=== PATIENT | male | born 1945 | race Caucasian/White ===

== ENCOUNTER 2019-12-04 12:07 | Observation (INO) ==
[2019-12-04] MEDS ORDERED: 0.9 % Sodium Chloride 1,000 ML IVC ONE (12:35)
[2019-12-04] MEDS ORDERED: Furosemide 40 MG/4 ML VIAL IVP ONE (12:35)
[2019-12-04] MEDS ORDERED: predniSONE 20 MG TABLET PO ONE (12:35)
[2019-12-04] MEDS ORDERED: Isovue-370 500 ML BOTTLE IVP ONE (12:38)
[2019-12-04] MEDS ORDERED: *HR* FentaNYL (PF) 100 MCG/2 ML VIAL IVP ONE (12:48)
[2019-12-04] MEDS ORDERED: Ondansetron 4 MG/2 ML VIAL IVP ONE (12:48)
[2019-12-04] MEDS ORDERED: Azithromycin 500 MG in 0.9 % Sodium Chloride 250 ML IVPB ONE (12:49)
[2019-12-04 12:57] LABS: Basophils # 0.1 K/mcL (0.0-0.2); Basophils % 0.6 %; Eosinophils # 0.1 K/mcL (0.0-0.6); Eosinophils % 0.7 %; Hematocrit 41.5 % (37.5-50.1); Hemoglobin 12.8 g/dL (12.9-16.9); Immature Granulocytes % 0.4 % (0-4); Lymphocytes # 0.8 K/mcL (0.6-4.6); Lymphocytes % 8.7 %; Mean Corpuscular HGB Conc 30.8 g/dL (31.6-35.5); Mean Corpuscular Hemoglobin 29.4 pg (28.0-33.3); Mean Corpuscular Volume 95.4 fL (83.0-100.0); Mean Platelet Volume 10.9 fL (9.4-12.4); Monocytes # 0.4 K/mcL (0.0-1.3); Monocytes % 4.7 %; Neutrophils # 7.6 K/mcL (1.6-8.9); Platelet Count 229 K/mcL (140-400); Red Blood Count 4.35 M/mcL (4.19-5.50); Red Cell Distribution Width 14.2 % (11.5-14.5); Segmented Neutrophils % 84.9 %
[2019-12-04 13:00] LABS: INR 1.3; Prothrombin Time 14.7 Seconds (9.4-12.1)
[2019-12-04 13:03] LABS: Activated Partial Thrombo Time 37.3 Seconds (26.0-36.0)
[2019-12-04 13:14] LABS: Bilirubin,Urine Negative (Negative); Blood,Urine Negative (Negative); Clarity,Urine Clear (Clear); Color,Urine Light-Yellow (Yellow); Glucose,Urine (UA) Normal (Normal); Ketones,Urine Negative (Negative); Leukocyte Esterase,Urine Negative (Negative); Nitrite,Urine Negative (Negative); PH,Urine 6.5 pH Units (5.0-8.0); Protein,Urine Trace mg/dL (Neg-Trace); Specific Gravity,Urine 1.022 (1.010-1.025); Urobilinogen,Urine Normal (Normal)
[2019-12-04 13:24] LABS: Alanine Aminotransferase 32 Units/L (7-52); Albumin 4.2 g/dL (3.5-5.7); Albumin/Globulin Ratio 1.8 (1.1-2.2); Alkaline Phosphatase 95 Units/L (34-104); Aspartate Amino Transferase 25 Units/L (13-39); BUN/Creatinine Ratio 22 (6-26); Bilirubin,Direct 0.2 mg/dL (0.0-0.2); Bilirubin,Indirect 0.5 mg/dL (0.0-1.0); Bilirubin,Total 0.7 mg/dL (0.3-1.0); Blood Urea Nitrogen 31 mg/dL (8-23); Calcium 9.4 mg/dL (8.6-10.3); Carbon Dioxide 32 mEq/L (23-29); Chloride 101 mEq/L (98-107); Globulin 2.3 g/dL (2.4-3.5); Glucose 116 mg/dL (70-105); Lipase 40 Units/L (11-82); Osmolality,Calculated 296 (280-300); Potassium 4.3 mEq/L (3.5-5.1); Sodium 139 mEq/L (136-145); Total Protein 6.5 g/dL (6.4-8.9); Troponin I 0.04 ng/mL (< 0.04); eGFR For African Americans > 60 (> 60); eGFR For Non-African Americans 50 (> 60)
[2019-12-04] MEDS ORDERED: Aspirin 81 MG TAB.CHEW PO ONE (13:24)
[2019-12-04 14:08] LABS: Adenovirus Not Detected (Not Detect); Bordetella Pertussis Not Detected (Not Detect); Chlamydophila pneumoniae Not Detected (Not Detect); Coronavirus 229E Not Detected (Not Detect); Coronavirus HKU1 Not Detected (Not Detect); Coronavirus NL63 Not Detected (Not Detect); Coronavirus OC43 Not Detected (Not Detect); Human Metapneumovirus Not Detected (Not Detect); Human Rhinovirus/Enterovirus Not Detected (Not Detect); Influenza A Subtype 2009 H1 Not Detected (Not Detect); Influenza B Not Detected (Not Detect); Mycoplasma pneumoniae Not Detected (Not Detect); Parainfluenza Virus 1 Not Detected (Not Detect); Parainfluenza Virus 2 Not Detected (Not Detect); Parainfluenza Virus 3 Not Detected (Not Detect); Parainfluenza Virus 4 Not Detected (Not Detect); Respiratory Syncytial Virus Not Detected (Not Detect)
[2019-12-04] MEDS ORDERED: Naloxone 0.4 MG/ML INJ IVP PRN (15:45)
[2019-12-04] MEDS ORDERED: Ondansetron 4 MG/2 ML VIAL IVP PRN (15:45)
[2019-12-04] MEDS ORDERED: Ipratropium/Albuterol Neb 3 ML IH PRN (15:47)
[2019-12-04] MEDS ORDERED: Perflutren Lipid Microsphere 1.3 ML in 0.9 % Sodium Chloride 8.7 ML IVP PRN (15:48)
[2019-12-04] MEDS: Ipratropium/Albuterol Neb 3 ML IH SCH ×2 (16:18→21:48)
[2019-12-04] MEDS ORDERED: *HR* Metoprolol 5 MG/5 ML VIAL IVP ONE (16:26)
[2019-12-04] MEDS ORDERED: *HR* Metoprolol 5 MG/5 ML VIAL IVP STA (16:51)
[2019-12-04] MEDS: Nicotine 21 MG PATCH.TD24 TD SCH (17:15)
[2019-12-04] MEDS: Apixaban 5 MG TABLET PO SCH (20:49)
[2019-12-05] MEDS: Melatonin 3 MG TABLET PO PRN (00:09)
[2019-12-05 02:37] LABS: Basophils % 0.1 %; Hematocrit 36.7 % (37.5-50.1); Hemoglobin 11.4 g/dL (12.9-16.9); Immature Granulocytes % 0.5 % (0-4); Lymphocytes # 0.5 K/mcL (0.6-4.6); Lymphocytes % 6.4 %; Mean Corpuscular HGB Conc 31.1 g/dL (31.6-35.5); Mean Corpuscular Hemoglobin 29.4 pg (28.0-33.3); Mean Corpuscular Volume 94.6 fL (83.0-100.0); Mean Platelet Volume 10.9 fL (9.4-12.4); Monocytes # 0.4 K/mcL (0.0-1.3); Monocytes % 5.2 %; Neutrophils # 6.7 K/mcL (1.6-8.9); Platelet Count 211 K/mcL (140-400); Red Blood Count 3.88 M/mcL (4.19-5.50); Red Cell Distribution Width 14.1 % (11.5-14.5); Segmented Neutrophils % 87.8 %; White Blood Count 7.7 K/mcL (4.3-11.1)
[2019-12-05 03:00] LABS: Calcium 8.5 mg/dL (8.6-10.3); Magnesium 2.1 mg/dL (1.6-2.6); Phosphorous 4.3 mg/dL (2.7-4.5); Potassium 4.6 mEq/L (3.5-5.1)
[2019-12-05] MEDS: Ipratropium/Albuterol Neb 3 ML IH SCH ×4 (03:14→21:42)
[2019-12-05] MEDS: Nicotine 21 MG PATCH.TD24 TD SCH (08:33)
[2019-12-05] MEDS: lisinopriL 10 MG TABLET PO SCH (08:34)
[2019-12-05] MEDS: Apixaban 5 MG TABLET PO SCH (08:34)
[2019-12-05] MEDS ORDERED: Azithromycin 500 MG in 0.9 % Sodium Chloride 250 ML IVPB SCH (09:00)
[2019-12-05] MEDS ORDERED: Furosemide 20 MG/2 ML VIAL IVP SCH (09:00)
[2019-12-05] MEDS ORDERED: predniSONE 20 MG TABLET PO SCH (09:00)
[2019-12-05] MEDS ORDERED: *HR* Heparin 5,000 UNIT/ML VIAL IVP ONE (14:25)
[2019-12-05 15:04] LABS: Hematocrit 37.5 % (37.5-50.1); Hemoglobin 11.6 g/dL (12.9-16.9); Mean Corpuscular HGB Conc 30.9 g/dL (31.6-35.5); Mean Corpuscular Hemoglobin 29.4 pg (28.0-33.3); Mean Corpuscular Volume 94.9 fL (83.0-100.0); Mean Platelet Volume 10.6 fL (9.4-12.4); Platelet Count 215 K/mcL (140-400); Red Blood Count 3.95 M/mcL (4.19-5.50); Red Cell Distribution Width 14.4 % (11.5-14.5)
[2019-12-05 15:13] LABS: INR 1.3; Prothrombin Time 14.9 Seconds (9.4-12.1)
[2019-12-05 15:16] LABS: White Blood Count 14.3 K/mcL (4.3-11.1)
[2019-12-05] MEDS: *HR* LORazepam 0.5 MG TABLET PO PRN ×2 (15:25→20:19)
[2019-12-05] MEDS: Aspirin Enteric Coated 81 MG Tablet PO SCH (15:25)
[2019-12-05 15:34] LABS: Heparin anti-factor XA UFH 1.87 IU/mL (0.30-0.70)
[2019-12-05] MEDS ORDERED: *HR* Heparin 5,000 UNIT/ML VIAL IVP PRN ×2 (18:00)
[2019-12-05] MEDS ORDERED: Heparin 25,000UNIT/250ML 1/2NS 25,000 UNIT/250 ML IV.SOLN IVC SCH (18:00)
[2019-12-05 18:10] LABS: Heparin anti-factor XA UFH 1.83 IU/mL (0.30-0.70)
[2019-12-05 18:36] LABS: Activated Partial Thrombo Time 35.1 Seconds (26.0-36.0)
[2019-12-05] MEDS: *HR* Metoprolol 5 MG/5 ML VIAL IVP PRN (23:44)
[2019-12-06] MEDS ORDERED: *HR* LORazepam 2 MG/ML VIAL IVP ONE (00:18)
[2019-12-06 02:50] LABS: Basophils % 0.1 %; Eosinophils % 0.1 %; Hematocrit 36.2 % (37.5-50.1); Hemoglobin 11.3 g/dL (12.9-16.9); Immature Granulocytes % 0.3 % (0-4); Lymphocytes % 7.1 %; Mean Corpuscular HGB Conc 31.2 g/dL (31.6-35.5); Mean Corpuscular Hemoglobin 29.3 pg (28.0-33.3); Mean Corpuscular Volume 93.8 fL (83.0-100.0); Mean Platelet Volume 10.9 fL (9.4-12.4); Monocytes # 1.1 K/mcL (0.0-1.3); Monocytes % 7.8 %; Neutrophils # 12.2 K/mcL (1.6-8.9); Platelet Count 205 K/mcL (140-400); Red Blood Count 3.86 M/mcL (4.19-5.50); Red Cell Distribution Width 14.5 % (11.5-14.5); Segmented Neutrophils % 84.6 %; White Blood Count 14.5 K/mcL (4.3-11.1)
[2019-12-06 03:07] LABS: Calcium 8.7 mg/dL (8.6-10.3)
[2019-12-06] MEDS: Ipratropium/Albuterol Neb 3 ML IH SCH (03:26)
[2019-12-06] MEDS: *HR* Metoprolol 5 MG/5 ML VIAL IVP PRN (04:39)
[2019-12-06] MEDS ORDERED: Metoprolol XL (24 HR) Succ 50 MG TAB.ER.24H PO SCH (09:00)
[2019-12-06] MEDS: Aspirin Enteric Coated 81 MG Tablet PO SCH (09:46)
[2019-12-06] MEDS: lisinopriL 10 MG TABLET PO SCH (09:46)
[2019-12-06] MEDS ORDERED: *HR* Heparin 10,000 UNIT/10 ML VIAL ONE (11:38)
[2019-12-06] MEDS ORDERED: Heparin 1,000 UNITS/500 mL 500 ML ONE (11:38)
[2019-12-06] MEDS ORDERED: 0.9 % Sodium Chloride 2,000 ML ONE (11:38)
[2019-12-06] MEDS ORDERED: ISOVUE-370 200 ML INFUS..BTL ONE (11:38)
[2019-12-06] MEDS ORDERED: Nitroglycerin 1,000 MCG/10 ML VIAL IV ONE (11:39)
[2019-12-06] MEDS ORDERED: *HR* FentaNYL (PF) 100 MCG/2 ML VIAL ONE (12:15)
[2019-12-06] MEDS ORDERED: *HR* Midazolam HCl 2 MG/2 ML VIAL ONE (12:15)
[2019-12-06] MEDS: Furosemide 20 MG/2 ML VIAL IVP SCH ×2 (14:31→20:57)
[2019-12-06] MEDS: Nicotine 21 MG PATCH.TD24 TD SCH (14:35)
[2019-12-06] MEDS: Apixaban 5 MG TABLET PO SCH (20:53)
[2019-12-06] MEDS: Metoprolol XL (24 HR) Succ 50 MG TAB.ER.24H PO SCH (20:57)
[2019-12-06] MEDS: Melatonin 3 MG TABLET PO PRN (21:06)
[2019-12-07 05:28] LABS: Basophils % 0.2 %; Eosinophils # 0.2 K/mcL (0.0-0.6); Eosinophils % 1.5 %; Hemoglobin 11.7 g/dL (12.9-16.9); Immature Granulocytes % 0.3 % (0-4); Lymphocytes # 1.4 K/mcL (0.6-4.6); Lymphocytes % 13.4 %; Mean Corpuscular HGB Conc 31.6 g/dL (31.6-35.5); Mean Corpuscular Hemoglobin 30.3 pg (28.0-33.3); Mean Corpuscular Volume 95.9 fL (83.0-100.0); Monocytes % 9.7 %; Neutrophils # 7.8 K/mcL (1.6-8.9); Platelet Count 185 K/mcL (140-400); Red Blood Count 3.86 M/mcL (4.19-5.50); Red Cell Distribution Width 14.7 % (11.5-14.5); Segmented Neutrophils % 74.9 %; White Blood Count 10.4 K/mcL (4.3-11.1)
[2019-12-07 05:44] LABS: BUN/Creatinine Ratio 26 (6-26); Blood Urea Nitrogen 36 mg/dL (8-23); Calcium 8.8 mg/dL (8.6-10.3); Carbon Dioxide 33 mEq/L (23-29); Chloride 100 mEq/L (98-107); Glucose 91 mg/dL (70-105); Osmolality,Calculated 296 (280-300); Potassium 4.1 mEq/L (3.5-5.1); Sodium 139 mEq/L (136-145); eGFR For African Americans > 60 (> 60); eGFR For Non-African Americans 51 (> 60)
[2019-12-07] MEDS: Furosemide 20 MG/2 ML VIAL IVP SCH (08:05)
[2019-12-07] MEDS: Aspirin Enteric Coated 81 MG Tablet PO SCH (08:05)
[2019-12-07] MEDS: Nicotine 21 MG PATCH.TD24 TD SCH (08:06)
[2019-12-07] MEDS: lisinopriL 10 MG TABLET PO SCH (08:06)
[2019-12-07] MEDS: Metoprolol XL (24 HR) Succ 50 MG TAB.ER.24H PO SCH (08:06)
[2019-12-07] MEDS: Apixaban 5 MG TABLET PO SCH (08:06)
[2019-12-07] MEDS ORDERED: Spironolactone 25 MG TABLET PO SCH (10:45)
[2019-12-07 12:07] VITALS: BP 130/88
== END 2019-12-07 13:02 | disposition home or self-care (01) ==
LOC: 2ANU 12:07 → EMEROOARM 12:07 → SUATTDRO 15:15 → 2ANU 15:51
PROVIDERS: ADMIT Internal Medicine; ATTEND Internal Medicine

== ENCOUNTER 2019-12-14 20:38 | Observation (INO) ==
[2019-12-14] MEDS ORDERED: Ondansetron 4 MG/2 ML VIAL IVP ONE (20:49)
[2019-12-14 21:29] LABS: Basophils % 0.3 %; Eosinophils % 0.1 %; Hematocrit 37.5 % (37.5-50.1); Hemoglobin 12.1 g/dL (12.9-16.9); Immature Granulocytes % 0.4 % (0-4); Lymphocytes # 0.4 K/mcL (0.6-4.6); Lymphocytes % 4.6 %; Mean Corpuscular HGB Conc 32.3 g/dL (31.6-35.5); Mean Corpuscular Hemoglobin 30.8 pg (28.0-33.3); Mean Corpuscular Volume 95.4 fL (83.0-100.0); Mean Platelet Volume 10.8 fL (9.4-12.4); Monocytes # 0.3 K/mcL (0.0-1.3); Monocytes % 3.5 %; Neutrophils # 8.2 K/mcL (1.6-8.9); Platelet Count 196 K/mcL (140-400); Red Blood Count 3.93 M/mcL (4.19-5.50); Red Cell Distribution Width 14.4 % (11.5-14.5); Segmented Neutrophils % 91.1 %
[2019-12-14 21:52] LABS: Alanine Aminotransferase 52 Units/L (7-52); Albumin 3.8 g/dL (3.5-5.7); Albumin/Globulin Ratio 1.8 (1.1-2.2); Alkaline Phosphatase 111 Units/L (34-104); Aspartate Amino Transferase 36 Units/L (13-39); BUN/Creatinine Ratio 22 (6-26); Bilirubin,Direct 0.3 mg/dL (0.0-0.2); Bilirubin,Indirect 0.8 mg/dL (0.0-1.0); Bilirubin,Total 1.1 mg/dL (0.3-1.0); Blood Urea Nitrogen 31 mg/dL (8-23); Calcium 9.1 mg/dL (8.6-10.3); Carbon Dioxide 29 mEq/L (23-29); Chloride 102 mEq/L (98-107); Globulin 2.1 g/dL (2.4-3.5); Glucose 131 mg/dL (70-105); Lipase 19 Units/L (11-82); Osmolality,Calculated 296 (280-300); Potassium 4.2 mEq/L (3.5-5.1); Sodium 139 mEq/L (136-145); Total Protein 5.9 g/dL (6.4-8.9); Troponin I < 0.03 ng/mL (< 0.04); eGFR For African Americans 58 (> 60); eGFR For Non-African Americans 48 (> 60)
[2019-12-14 22:03] LABS: Bilirubin,Urine Negative (Negative); Blood,Urine Moderate (Negative); Clarity,Urine Clear (Clear); Color,Urine Light-Yellow (Yellow); Glucose,Urine (UA) Normal (Normal); Hyaline Casts,Urine Few per lpf (None Seen); Ketones,Urine Negative (Negative); Leukocyte Esterase,Urine Negative (Negative); Mucus,Urine Few per lpf (None-Few); Nitrite,Urine Negative (Negative); Protein,Urine Trace mg/dL (Neg-Trace); RBC,Urine 30-50 per hpf (0-3); Specific Gravity,Urine 1.014 (1.010-1.025); Urobilinogen,Urine Normal (Normal)
[2019-12-14] MEDS ORDERED: Furosemide 20 MG/2 ML VIAL IVP ONE (23:30)
[2019-12-15] MEDS ORDERED: Naloxone 0.4 MG/ML INJ IVP PRN (01:07)
[2019-12-15] MEDS ORDERED: Melatonin 3 MG TABLET PO PRN (01:11)
[2019-12-15] MEDS ORDERED: *HR* OxyCODONE Immed Rel 5 MG TABLET PO PRN (01:56)
[2019-12-15] MEDS ORDERED: Acetaminophen 325 MG TABLET PO PRN (01:57)
[2019-12-15 03:09] LABS: Hematocrit 39.7 % (37.5-50.1); Hemoglobin 12.7 g/dL (12.9-16.9); Mean Corpuscular Hemoglobin 29.8 pg (28.0-33.3); Mean Corpuscular Volume 93.2 fL (83.0-100.0); Mean Platelet Volume 10.7 fL (9.4-12.4); Platelet Count 212 K/mcL (140-400); Red Blood Count 4.26 M/mcL (4.19-5.50); Red Cell Distribution Width 14.5 % (11.5-14.5); White Blood Count 10.9 K/mcL (4.3-11.1)
[2019-12-15 03:27] LABS: Alanine Aminotransferase 48 Units/L (7-52); Albumin 3.7 g/dL (3.5-5.7); Albumin/Globulin Ratio 1.8 (1.1-2.2); Alkaline Phosphatase 106 Units/L (34-104); Aspartate Amino Transferase 31 Units/L (13-39); BUN/Creatinine Ratio 25 (6-26); Bilirubin,Total 1.4 mg/dL (0.3-1.0); Blood Urea Nitrogen 33 mg/dL (8-23); Calcium 8.9 mg/dL (8.6-10.3); Carbon Dioxide 29 mEq/L (23-29); Chloride 103 mEq/L (98-107); Globulin 2.1 g/dL (2.4-3.5); Glucose 111 mg/dL (70-105); Magnesium 1.9 mg/dL (1.6-2.6); Osmolality,Calculated 296 (280-300); Potassium 4.5 mEq/L (3.5-5.1); Sodium 139 mEq/L (136-145); Total Protein 5.8 g/dL (6.4-8.9); eGFR For African Americans > 60 (> 60); eGFR For Non-African Americans 53 (> 60)
[2019-12-15] MEDS: Ipratropium/Albuterol Neb 3 ML IH SCH ×2 (03:40→10:13)
[2019-12-15] MEDS: Furosemide 20 MG/2 ML VIAL IVP SCH (08:28)
[2019-12-15] MEDS: lisinopriL 10 MG TABLET PO SCH (08:29)
[2019-12-15] MEDS: Spironolactone 25 MG TABLET PO SCH (08:29)
[2019-12-15] MEDS: Metoprolol XL (24 HR) Succ 50 MG TAB.ER.24H PO SCH ×2 (08:29→21:33)
[2019-12-15 11:24] LABS: Hematocrit 37.2 % (37.5-50.1); Hemoglobin 11.8 g/dL (12.9-16.9)
[2019-12-15] MEDS ORDERED: Ipratropium/Albuterol Neb 3 ML IH PRN (14:21)
[2019-12-16 07:54] VITALS: BP 118/81
[2019-12-16] MEDS: lisinopriL 10 MG TABLET PO SCH (07:57)
[2019-12-16] MEDS: Furosemide 20 MG/2 ML VIAL IVP SCH (07:57)
[2019-12-16] MEDS: Spironolactone 25 MG TABLET PO SCH (07:57)
[2019-12-16] MEDS: Metoprolol XL (24 HR) Succ 50 MG TAB.ER.24H PO SCH (07:57)
[2019-12-16 09:09] LABS: Hematocrit 39.9 % (37.5-50.1); Hemoglobin 12.5 g/dL (12.9-16.9); Mean Corpuscular HGB Conc 31.3 g/dL (31.6-35.5); Mean Corpuscular Hemoglobin 30.3 pg (28.0-33.3); Mean Corpuscular Volume 96.8 fL (83.0-100.0); Platelet Count 199 K/mcL (140-400); Red Blood Count 4.12 M/mcL (4.19-5.50); Red Cell Distribution Width 14.6 % (11.5-14.5); White Blood Count 9.5 K/mcL (4.3-11.1)
[2019-12-16 09:25] LABS: Albumin 3.9 g/dL (3.5-5.7); Bilirubin,Total 1.5 mg/dL (0.3-1.0); Potassium 3.9 mEq/L (3.5-5.1); Total Protein 5.9 g/dL (6.4-8.9)
== END 2019-12-16 13:08 | disposition home or self-care (01) ==
LOC: EMEROOARM 20:38 → 3ANU 20:38
PROVIDERS: ADMIT Internal Medicine; ATTEND Internal Medicine